=== PATIENT | male | born 1975 | race Caucasian/White ===

== ENCOUNTER 2024-06-18 13:34 | Emergency (ER) | payer OTHER, SELFPAY ==
[2024-06-18] VITALS (11 sets, daily range): BP systolic 149–208; BP diastolic 97–130; BMI 26.7
--- NOTE | 2024-06-18 14:23 | ED.GENMED ---
History of Present Illness
General
Chief Complaint: Withdrawal Symptoms
Source: patient and records (From skilled nursing)
Exam Limitations: none
Time Seen by Provider: 06/18/24 14:02
Nursing documentation reviewed up to this point in time: agreed with
History of Present Illness
History of Present Illness:
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 Has not
had any today, but had some yesterday, said no fevers has had numerous episodes of nausea vomiting has a headache which she never gets, has been able to eat, treated with meds at the skilled nursing persistent symptoms referred here blood pressure is elevated,
he is cooperative, he has no fever
Past History
Past History
ED Past Medical History: Other (Narcotic addiction)
Social History
Tobacco: Non-smoker
Alcohol: None
Drug: Narcotics
Living: [facility]
Employment: Not employed
Review of Systems
Review of Systems
All Other Systems: Not applicable
Constitutional: Denies fever or fatigue
EENT: Reports no symptoms
Respiratory: Reports no symptoms
Cardiac: Reports no symptoms
ABD/GI: Reports abdominal pain, nausea and vomiting
Neurological: Reports headache
Phy Exam
Physical Exam
Physical Exam:
Physical Exam
General: 49-year-old male mild distress cooperative
Neck: Lips are dry
Heart: s1/s2 regular rate and rhythm, no murmur. equal radial pulses.
Lungs: no acute respiratory distress. clear bilaterally
Abdomen: Soft mild epigastric tender
Neuro: alert and oriented. no focal neurological deficits
Skin: no rash
Psychiatric: Cooperative
Extremities: no edema
Course
Orders/Labs/Results
Orders:
Orders
06/18/24 14:14
0.9% Sodium Chloride 1000 ml [Nss] 1,000 ml IV BOLUS
Methadone [Dolophine] 100 mg PO NOW STA
Ondansetron Injectable [Zofran] 4 mg IV NOW STA
06/18/24 14:17
CT Head W/o Iv Contrast Urgent
Comment:
Reason For Exam: bad WHEAT
06/18/24 14:18
diazePAM [Valium Injection] 5 mg IV NOW STA
06/18/24 14:27
Electrocardiogram (*1) Urgent
Reason for Study: QTc Monitoring
EKG- Treatment ONCE
06/18/24 14:50
Complete Blood Count/No Diff Urgent
Comprehensive Metabolic Panel Urgent
Lipase Urgent
06/18/24 16:39
Methadone [Dolophine] 100 mg PO NOW STA
06/18/24 17:25
Methadone HCl [Methadone 100 mg/10 ml] 30 mg PO NOW STA
06/18/24 19:07
Clonidine [Catapres] 0.2 mg PO NOW STA
Abnormal Lab Results
06/18/24
14:50
WBC 13.0 H 10^3/uL
(4.8-10.8)
MCHC 32.4 L g/dL
(33.0-37.0)
MPV 11.1 H fL
(7.4-10.4)
Carbon Dioxide 31 H mmol/L
(22-30)
Glucose 116 H mg/dl
(70-99)
06/18/24 14:50
06/18/24 14:50
Vital Signs
Initial and Last Documented VS:
Initial Vital Signs
BP
208/118
06/18/24 13:37
Last Documented Vital Signs
Temp Pulse Resp BP Pulse Ox
98.3 F 114 14 188/115 98
06/18/24 13:44 06/18/24 19:10 06/18/24 19:01 06/18/24 19:10 06/18/24 19:01
MDM/Problems Addressed
Differential Diagnosis Includes:
Benzodiazepine withdrawal narcotic withdrawal, hypertensive urgency, dehydration, less likely intracerebral hemorrhage
MDM/Problems Addressed:
Nausea vomiting withdrawal headache
*Critical Care Note
Total Time (30-74mins, 75-104mins- exclusive of procedures): Not Applicable
Update Note
Update Note:
Update, blood pressure improved, patient appears stable for transfer back to skilled nursing
ED Attending Note
-
Portions of this chart may have been created with voice recognition software.� Occasional wrong word or��sound alike� substitutions may have occurred due to the inherent limitations of voice recognition software.
Discharge Plan
Departure
Patient Disposition: [facility]
Date of Disposition: 06/18/24
Time of Disposition: 20:20
Patient with high blood pressure during this ER visit?: Yes
Condition: Good
Discharge Problem:
Acute narcotic withdrawal
Instructions: BLOOD PRESSURE, Drug Misuse and Addiction (DC), Nausea and Vomiting, Adult (DC)
Referrals:
[facility] [Family Provider] -
Activity Restrictions/Additional Instructions:
Follow-up with physicians at the skilled nursing
Interventions
Interventions:
*Risk Screen - Suicide Last Done: 06/18/24 13:51
*General Assessment Last Done: 06/18/24 13:51
*Neglect/Abuse Screening Last Done: 06/18/24 13:51
ED- Fall Risk Assessment Last Done: 06/18/24 19:05
*ED COVID-19 Vaccine History Last Done: 06/18/24 13:49
ED- Neurological Assessment Last Done: 06/18/24 13:53
ED-Psychological Assessment Last Done: 06/18/24 15:04
Discharge Date and Time
Print Language: ANGUILLAN
[2024-06-18] MEDS: VALIUM INJECTION 5 MG IV (14:58)
[2024-06-18] MEDS: NSS 1000 IV (14:58)
[2024-06-18 15:07] LABS: Hematocrit 42.3 % (39.0-52.0); Hemoglobin 13.7 g/dL (13.0-18.0); Mean Corp Hgb Conc. 32.4 g/dL (33.0-37.0); Mean Corpuscular Hgb 27.8 pg (27.0-31.0); Mean Platelet Volume 11.1 fL (7.4-10.4); Platelet Count 259 10^3/uL (130-400); Red Blood Cell Count 4.92 10^6/uL (4.70-6.10); Red Cell Dist. Width 13.8 % (11.5-14.5)
[2024-06-18 15:27] LABS: ALT (SGPT) 19 U/L (0-50); AST (SGOT) 50 U/L (17-59); Albumin 4.4 g/dl (3.5-5.0); Alkaline Phosphatase 72 U/L (38-126); Blood Urea Nitrogen 11 mg/dl (9-20); Calcium 8.5 mg/dl (8.4-10.2); Carbon Dioxide 31 mmol/L (22-30); Chloride 102 mmol/L (98-107); Estimated Creatinine Clearance 125 ml/min; Glucose 116 mg/dl (70-99); Lipase 28 U/L (23-300); Potassium 4.3 mmol/L (3.5-5.1); Sodium 142 mmol/L (135-145); Total Bilirubin 0.7 mg/dl (0.2-1.3); Total Protein 7.3 g/dl (6.3-8.2); eGFR > 60.00
[2024-06-18] MEDS: METHADONE 100 MG/10 ML 30 MG PO (17:55)
[2024-06-18] MEDS: CATAPRES 0.2 MG PO (19:10)
== END 2024-06-18 21:28 ==
LOC: EMR 13:34
PROVIDERS: EMERGENCY PHYSICIAN Emergency Medicine
DX: F11.23 Opioid dependence with withdrawal (principal); R11.2 Nausea with vomiting, unspecified; R10.9 Unspecified abdominal pain; R51.9 Headache, unspecified; I10 Essential (primary) hypertension; F41.9 Anxiety disorder, unspecified
CPT/HCPCS: 99284; 96374; 96361 ×2; 70450; 80053; 83690; 85027; 93005

== ENCOUNTER 2024-06-22 09:10 | Emergency (ER) | payer OTHER, SELFPAY ==
[2024-06-22] VITALS (12 sets, daily range): BP systolic 171–214; BP diastolic 99–144; BMI 25.8
--- NOTE | 2024-06-22 09:33 | ED.GENMED ---
History of Present Illness
General
Chief Complaint: Blood Pressure Problem
Source: patient
Time Seen by Provider: 06/22/24 09:25
History of Present Illness
History of Present Illness:
49-year-old male with past medical history of anxiety and substance abuse, hypertension presenting to the ER with correctional officers from [facility] for evaluation of elevated blood pressure. Patient seen in this
emergency department a few days ago for the same, ultimately disposition back to [facility] stating he had his blood pressure checked this morning and systolically was greater than 220 and diastolic was greater than 100. Patient states he does feel
little bit lightheaded but is otherwise in his usual state of health. Patient states that he is normally on olmesartan and Catapres for his antihypertensive regimen also noting he is on guanfacine a few years ago for ADD but at some point was told
this could also be used for his blood pressure as well. Patient denies any chest pain, headaches, vision disturbances, abdominal pain or any other concerns presently.
Past History
Past History
ED Past Medical History: HTN and Other (Narcotic addiction)
ED Past Surgical History: Orthopedic
Social History
Tobacco: Non-smoker
Alcohol: None
Drug: Narcotics
Personal: Single
Living: [facility]
Employment: Not employed
Review of Systems
Review of Systems
All Other Systems: ROS reviewed and negative except as documented in HPI and ROS
Phy Exam
Physical Exam
Physical Exam:
GENERAL: Alert , in no apparent distress
HEAD: NCAT
EYE: conjunctiva clear
NECK: Supple, no significant adenopathy.
ENT: o/p clr, mmm.
CARDIAC: Regular rate and rhythm
LUNGS: Clear breath sounds bilaterally, no acute respiratory distress, no wheezes/rales/rhonchi
NEUROLOGICAL: Alert and oriented
SKIN: Warm and dry, skin intact.
MUSCULOSKELETAL: well perfused.
PSYCH: Normal and appropriate interaction.
Scores
Heart Failure Risk
Heart Failure Risk Score: Not Applicable
Heart Score for Chest Pain Patients
STEMI patient?: Not applicable
Withdrawal Assessment of Alcohol
Withdrawal Assessment Completed?: Not applicable
Course
Orders/Labs/Results
Orders:
Orders
06/22/24 09:23
COVID-19 Antigen Urgent
Source: Nasal Swab
Influenza A+B Rapid Molecular Urgent
SORNI Source: Nasal Swab
Specimen Description:
06/22/24 09:30
CT Head W/o Iv Contrast Urgent
Comment:
Reason For Exam: HTN urgency, lightheaded
Clonidine [Catapres] 0.1 mg PO NOW STA
06/22/24 09:31
Electrocardiogram (*1) Urgent
Reason for Study: Hypertension, Benign
EKG- Treatment ONCE
Vital Signs
Initial and Last Documented VS:
Initial Vital Signs
BP
174/129
06/22/24 09:11
Last Documented Vital Signs
Temp Pulse Resp BP Pulse Ox
98.5 F 88 20 171/123 99
06/22/24 09:20 06/22/24 11:15 06/22/24 11:15 06/22/24 12:07 06/22/24 12:07
MDM/Problems Addressed
Differential Diagnosis Includes:
Chronic hypertension/asymptomatic hypertension, hypertensive urgency, malignant hypertension, no symptoms to suggest ACS, patient does report some mild lightheadedness and did not have a head CT the last time he was here so we will check a head CT
MDM/Problems Addressed:
49-year-old male presenting to the emergency department at the request of [facility] for evaluation at request of medical team at [facility] for significantly elevated blood pressure. Patient is on clonidine 0.1mg TID and
olmesartan. Reportedly compliant with this, unsure if taken this AM. Admits to some lightheadedness. On record review patient does have significantly elevated blood pressures throughout most of his visits raising suspicion for poorly controlled
chronic HTN. Will treat with clonidine here. Head CT ordered. Labs done 4 days ago unremarkable.
Chronic conditions affecting care: HTN
Acute Exacerbation and/or Progression of Chronic Illness: HTN
*Radiology
Radiology exam reviewed: radiology read reviewed
*Pulse Oximetry
Patient hypoxic: no
*EKG
Heart Rate: 91
Rate: normal
Rhythm: sinus
[place]: normal axis
Ischemia: no ischemia
*[employer] Interpretation
Rate: normal
Rhythm: sinus
*Critical Care Note
Total Time (30-74mins, 75-104mins- exclusive of procedures): Not Applicable
Patient Management
Discussion with other providers: Intermediate staff
Escalation/DeEscalation of care consider admission/obs:
Patient CT of the head is unremarkable. He remains asymptomatic and without any signs of endorgan dysfunction. I contacted the [facility] medical staff and discussed the case as well as notified them that on all of his visits here to our ER patient
has had significantly elevated blood pressures raising my concern for poorly controlled hypertension. They will follow-up with the patient and make medication changes as necessary. Patient is otherwise stable for disposition and medically cleared
for incarceration.
ED Attending Note
-
Portions of this chart may have been created with voice recognition software.� Occasional wrong word or��sound alike� substitutions may have occurred due to the inherent limitations of voice recognition software.
Discharge Plan
Departure
Patient Disposition: Home (Routine Discharge)
Date of Disposition: 06/22/24
Time of Disposition: 11:20
Patient with high blood pressure during this ER visit?: Yes
Discharge Problem:
Hypertension
Instructions: High Blood Pressure (DC)
Referrals:
[facility] [Family Provider] -
Interventions
Interventions:
*Risk Screen - Suicide Last Done: 06/22/24 09:20
*General Assessment Last Done: 06/22/24 09:20
*Neglect/Abuse Screening Last Done: 06/22/24 09:20
ED- Fall Risk Assessment Last Done: 06/22/24 09:20
*ED COVID-19 Vaccine History Last Done: 06/22/24 09:20
*Nursing Disposition Last Done: 06/22/24 12:40
ED- Cardiac Assessment Last Done: 06/22/24 09:20
ED- Neurological Assessment Last Done: 06/22/24 09:20
ED- Pulmonary Assessment Last Done: 06/22/24 09:20
Discharge Date and Time
Discharge Date/Time: 06/22/24 12:41
Print Language: MOSOTHO
[2024-06-22 10:12] LABS: COVID-19 Antigen Negative (Negative)
[2024-06-22] MEDS: CATAPRES 0.1 MG PO (10:42)
== END 2024-06-22 12:41 | disposition home or self-care (01) ==
LOC: EMR 09:10
PROVIDERS: EMERGENCY PHYSICIAN Emergency Medicine
DX: I10 Essential (primary) hypertension (principal); Z79.899 Other long term (current) drug therapy
CPT/HCPCS: 99284; 70450; 87502; 87811; 93005